=== PATIENT | female | born 1945 | race Caucasian/White ===

== ENCOUNTER 2016-06-22 13:39 | Inpatient (IN) | payer MEDICARE, OTHER ==
[~2016-06-22] VITALS: Ht 167.6 cm; Wt 74.3 kg
--- NOTE | ~2016-06-22 | DS ---
PATIENT'S NAME: SUHAIL HUBBARD [facility] AGE: 70 Y [address] ROOM: [address] [address] LOCATION: [facility] [place] ADMIT DATE: 06/23/2016 Discharge Summary DISCHARGE DATE: 06/29/2016 FAMILY PHYSICIAN: Ac Martinez MD ATTENDING PHYSICIAN: Emerson Mireles FINAL DIAGNOSIS: Right retroperitoneal malignancy with renal involvement with final pathology pending. OTHER DIAGNOSES: 1. Kyk-hyukcwk-cldnernrd diabetes. 2. Coronary artery disease. 3. Deep venous thrombosis. 4. Chronic anemia. SURGICAL PROCEDURE: Right radical nephrectomy on 06/23/2016. REASON FOR HOSPITALIZATION: This is a 70-year-old lady, found to have a massive right retroperitoneal mass. She was anemic and had a palpable mass. CTA indicated that was likely of renal origin. She was admitted at this time for nephrectomy. For complete details of the past history and physical exam, refer to the dictated report. LAB AND X-RAY DATA: Final pathology is pending. It is a poorly differentiated malignancy. It has been sent to the [facility]. She was anemic with a hemoglobin of approximately 8 at the time of admission. With her massive tumor, we started transfusion at the time of surgery. She received for 4 intraoperative units as well as a unit postoperatively. Her hemoglobin was stable at 8.0 at last check prior to discharge. Chemistries were within normal limits and remained within normal limits postop. Accu- Cheks were followed appropriately. She had a postoperative chest x-ray that was unremarkable. HOSPITAL COURSE: The patient was admitted for indications noted above. After preoperative preparation, she underwent the above-noted surgery. She tolerated it well. Her postoperative course has been relatively benign. She was slowly advanced on an ADA diet. The hospitalist followed her from a medical standpoint. She has done fine with her diabetes management. We have gotten her started back on anticoagulants and antiplatelet therapy with her known DVT. At this point, she is tolerating a regular diet. Her wound is progressing nicely. She is felt ready for discharge and follow up as an outpatient. DISPOSITION: The patient discharged to home in stable condition. Resume her usual diet and activity with instructions to no heavy lifting or straining. PATIENT'S NAME: SUHAIL HUBBARD [facility] AGE: 70 Y [address] ROOM: [address] [address] LOCATION: [facility] [place] ADMIT DATE: 06/23/2016 Discharge Summary DISCHARGE DATE: 06/29/2016 FAMILY PHYSICIAN: Ac Martinez MD ATTENDING PHYSICIAN: Emerson Mireles DISCHARGE MEDICATIONS: Unchanged from admission with the addition of iron replacement and [place] on a p.r.n. basis for pain. She will be seen locally at the end of this week for staple removal. Either myself or Dr. Machado will see her at outreach clinic in 2 to 3 weeks. We will have the pathology back then. I have talked to the family about making arrangements at that point for Oncology evaluation for additional therapy. The tumor was invasive and growing into the mesentery. We could not resect all disease. She will call if she has any questions or concerns. Otherwise, followup will be as above. EMERSON MIRELES MD [facility]/modl /[id number] CC: Ac Martinez MD d: 06/29/16 1856 t: 06/30/16 0955, DISCHARGE SUMMARY
--- NOTE | ~2016-06-22 | OR ---
PATIENT'S NAME: SUHAIL HUBBARD [facility] AGE: 70 Y [address] ROOM: [address] [address] [place] [facility] [place]: 06/23/2016 OR/Procedure Report DISCHARGE DATE: FAMILY PHYSICIAN: Ac Martinez MD ATTENDING PHYSICIAN: Emerson Mireles SURGEON: Emerson Mireles MD TAPPING MACHINE OPERATOR: Alo Grande MD. DATE OF PROCEDURE: 06/23/2016 PREOPERATIVE DIAGNOSIS: Massive right renal mass. POSTOPERATIVE DIAGNOSIS: Massive right renal mass with malignancy confirmed on preliminary pathology with final pathology deferred to permanents. PROCEDURE: Complicated right radical nephrectomy secondary to massive size and direct invasion into the mesentery. ANESTHESIA: General plus epidural. INDICATION: This is a 70-year-old lady who was recently found to have an approximately 19 cm right renal mass. It is huge and visually apparent on examination. Dr. Martinez found that. Interestingly, her only symptom was some fatigue and she was found to be anemic with hemoglobin of approximately 8. She presents for radical nephrectomy. There does not be appear to be any vascular invasion. The procedure will be complicated by the massive size of the tumor which distorts her anatomy. We have studied her preoperative CT's extensively, and her right renal artery and vein are pushed up under the edge of the liver. We will have to be cognizant of the left renal vein as it comes across also. 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 She has developed a DVT likely secondary to her malignancy and her compromised venous return. Our first goal to be make sure it is resectable before we proceed. Hopefully, if we can control the hilum and get it out, it will be encapsulated and contained. DESCRIPTION OF PROCEDURE: Having obtained informed consent, the patient was taken to the operating room. She was prepped and draped sterilely and in a slight right flank position. Based on our review of the preoperative CT scans, we will make her usual 11th rib incision. The vessels appeared to be right at the level of 12th rib. In addition, we are prepared to proceed with an extension across the midline or a vertical depending on what we need for exposure. General anesthesia was administered without incident. She has an indwelling epidural from preop. The 12th rib incision was made. We came medially down onto the tumor which distorts her abdominal anatomy. As noted, it is visually apparent. We were careful coming down onto the surface in case there is any bowel. There does not appear to be from the CT scan. We did PATIENT'S NAME: SUHAIL HUBBARD [facility] AGE: 70 Y [address] ROOM: [place] [address] [place] [facility] [place]: 06/23/2016 OR/Procedure Report DISCHARGE DATE: FAMILY PHYSICIAN: Ac Martinez MD ATTENDING PHYSICIAN: Emerson Mireles come down on top of the identifiable kidney. That is the upper pole. The tumor appears to emanate from the lower pole. We spent some careful time initially in dissecting. It became apparent that the colon was stuck across the top of it inferiorly. We are going to need more exposure. Therefore, we divided the ligament of Treitz and extended our incision across in a partial chevron on the patient's left. This improved our exposure. We then worked down and we find that the tumor is densely adherent to the mesentery. As we will see, it actually grows into it. My first goal was to identify the vena cava as it is compressed and diverted by the mass. We mobilized the duodenal carefully. I then identified the vena cava. I was then able to identify the gonadal vein draining into it and a large right renal vein. I initially controlled those with vessel loops. We did not divide anything until we were sure we could get the kidney out. We then spent some time taking down the reflexion from the liver. We do have a nice plane there. Then worked laterally. As we worked our way laterally, the mass mobilized a bit and we were able to bring much of it up into our incision. It was at point, as we tried to mobilize the colon off the top of it, but we realized it was actually invading the mesentery. Specifically, the edge of the bowel was nicely visualized, and in order to stay out of that edge, we had to go out directly through the tumor along the mesentery. We also had to be careful of inferiorly as the tumor distorts and lays on top of the iliac vessels. Ultimately, we got mobilized to the point where I felt that we could get it removed. It is going to be a debulking. Based on the inferior invasion, we will have residual disease. I went ahead and ligated the gonadal vein as well as the renal vein. We were then able to identify the artery underneath it. Interestingly, I found a second artery which we could not appreciate from her preoperative CT scan. We control both of those. We then mobilized the kidney. We then followed the tumor down towards her right lower quadrant. Once we got completely mobilized, we could bring it up with her right colon. Right colon was taken off, but there was obvious tumor left behind as described above. The entire tumor mass is sent to Pathology. Pathology informed us that it is definitely malignant. They are leaning potentially toward sarcoma, but they are deferring to final pathology. We spent some time with antibiotic irrigation. She had a number of oozing sites where we had to peel the tumor off. We controlled those with cautery and stick ties. We then closed a small mesenteric defect to avoid any herniation from small bowel and a subsequent bowel obstruction. The colon was then returned to its normal anatomic position. The wound was then closed in layers. The patient tolerated the procedure well. Blood loss was estimated at 1100 mL. Based on the blood loss and her starting hemoglobin, anesthesia PATIENT'S NAME: SUHAIL HUBBARD [facility] AGE: 70 Y [address] ROOM: [place] [address] [place] [facility] [place]: 06/23/2016 OR/Procedure Report DISCHARGE DATE: FAMILY PHYSICIAN: Ac Martinez MD ATTENDING PHYSICIAN: Emerson Mireles transfused throughout. She received 4 units of packed cells. She also received albumin and FFP. She remained relatively stable from hemodynamic standpoint. She was transferred to the recovery area, already awake, and hemodynamically stable. EMERSON MIRELES MD [facility]/modl /[id number] CC: Ac Martinez MD d: 06/23/16 1733 t: 06/30/16 0953, OPERATIVE SUMMARY
[2016-06-22 14:32] LABS: INR - (THERAPEUTIC) 1.1 (0.9-1.1); PROTIME 11.4 SECONDS (9.6-11.1)
[2016-06-22] MEDS ORDERED: XARELTO15 MG PO (14:38)
[2016-06-22] MEDS ORDERED: PLAVIX75 MG PO (14:38)
[2016-06-22] MEDS ORDERED: PANTOPRAZOLE SO40 MG PO (14:39)
[2016-06-22] MEDS ORDERED: COREG25 MG PO (14:39)
[2016-06-22] MEDS ORDERED: NORVASC10 MG PO (14:39)
[2016-06-22] MEDS ORDERED: GLUCOPHAGE500 MG PO (14:40)
[2016-06-22] MEDS ORDERED: ATORVASTATIN CA80 MG PO (14:40)
[2016-06-22] MEDS ORDERED: VASOTEC10 MG PO (14:40)
[2016-06-22] MEDS ORDERED: CALCIUM CARBON600 MG PO (14:41)
[2016-06-22] MEDS ORDERED: FISH OIL 1,0001 EACH PO (14:43)
[2016-06-22] MEDS ORDERED: EYE VITAMIN-MI1 EACH PO (14:44)
[2016-06-22] MEDS ORDERED: THERA-VITE W/ B1 TAB PO (14:44)
[2016-06-22] MEDS ORDERED: ASCORBIC ACID500 MG PO (14:44)
[2016-06-23 10:39] LABS: HEMATOCRIT 23.7 % (33.0-46.0)
[2016-06-23 11:06] LABS: BICARBONATE 18.1 mmol/L (18.0-23.0); PCO2 35 mmHg (35-45); PO2 140 mmHg (80-90)
[2016-06-23 11:07] LABS: POTASSIUM 4.3 mEq/L (3.7-5.1); SODIUM 142 mEq/L (135-145)
[2016-06-23 15:46] LABS: HEMATOCRIT 25.2 % (33.0-46.0); HEMOGLOBIN 8.5 g/dL (10.0-15.0)
--- NOTE | 2016-06-23 17:21 | NUR ---
Significant Event: PT AO. POST OP VITALS STABLE, LAST HOURLY WILL BE AT 1850. 1/2NS RUNNING AT 100ML/HR. CAN SALINE LOCK WHEN NANCY PO. ON CLEAR LIQUID DIET. ARRIAGA PATENT, 175ML URINE OUT. PT IS BEDREST. INCISION TO R UPPER ABDOMEN, DRESSING D/I. PNEUMATIC TO R LEG ONLY, DVT IN LLE THIS MONTH. EPIDURAL RUNNING FENTANYL/ROPIVOCAINE 5 CONTINUOUS, 2 DEMAND, 15MIN LOCKOUT. NO EXTRA DEMANDS THIS SHIFT. ACHS ACCUCHECKS. FAMILY AT BEDSIDE. Follow up: IS Q 1/2 HR, LABS IN AM, BEDREST
[2016-06-23 19:57] LABS: CREATININE 1.1 mg/dL (0.5-1.1)
--- NOTE | 2016-06-24 04:10 | NUR ---
Significant Event:pt is a/o x3. pt has epidural with fent/ropivicane 5 continuous, 2 mg demand and 15min lockout pt had no demands and rated pain @ 0 all shift. pt rested well. dressing across abdomen around to mid side on right. pt is taking in cl slowly but tolerating it. iv to l fa has 1/2 ns @ 100 and may be sl when taking po well. iv to r wrist is sl. vo is patent. accuchecks ac/hs w/ mild ss, bs was 171 no insulin given. pt has hx of dvt to l leg on jun 09- no pneumatic to l leg. pt on xeralto @ home- do not let drs. restart until after epidural dc'd. pt is on bedrest but will likely be able to get up to the chair today. Follow up:monitor pain-epidural
[2016-06-24 05:50] LABS: BASOPHIL % 0.1 %; HEMOGLOBIN 7.8 g/dL (10.0-15.0); IMMATURE GRANULOCYTE % 0.2 %; LYMPHOCYTE # 1.3 K/uL (0.8-4.0); LYMPHOCYTE % 10.9 %; MCH 29.9 pg (27.0-34.0); MCHC 33.9 gm/dL (32.0-36.5); MCV 88.1 fl (83.0-98.0); MONOCYTE # 0.8 K/uL (0.0-1.0); MONOCYTE % 6.9 %; MPV 9.7 fl (9.4-12.4); NEUTROPHIL % 81.9 %; NRBC % 0 /100WBC (0-0.00); PLATELET COUNT 143 K/uL (150-450); RBC 2.61 M/uL (3.50-5.50); RDW-CV 14.7 % (11.9-14.6); WBC 12.2 K/uL (4.0-11.0)
[2016-06-24 06:10] LABS: ALBUMIN 2.2 gm/dL (3.5-5.0); ANION GAP 14.3 (10.0-19.0); CALCIUM 7.9 mg/dL (8.5-10.5); PHOSPHORUS 3.3 mg/dL (2.5-4.9); POTASSIUM 4.3 mMol/L (3.7-5.1)
--- NOTE | 2016-06-24 17:57 | NUR ---
Is A/O.Has epidural running.IV was put to SL later this afternoon.Has had no c/o pain.Is pale.Hgb today was 7.8.Had Lasix 20mg IV at 0835.Scotty garcia yellow urine.Is passing some flatus.SL in Lt.forearm & Lt.wrist.Amb few steps in room.Has been up in chair.Taking flds well.Edema in Lt.hand/wrist & lower extremities.No N/V.
--- NOTE | 2016-06-25 04:10 | NUR ---
Significant Event: Patient alert and oriented X4. Up with 1PA. On epidural running fent/ropivicaine at 5mcg cont, 2mcg demand and 15 min lockout. Saline locks to both wrists. Talking PO well. Rating pain at 0/10. No demands on epidural. Fajardo patent. ACHS accuchecks. Mild SS. Incision across abdomen with shadow drainage noted. Received blood on Wednesday. Cooperative with cares. Follow up: Monitor pain
[2016-06-25 05:47] LABS: BASOPHIL % 0.3 %; EOSINOPHIL % 0.3 %; HEMATOCRIT 21.2 % (33.0-46.0); IMMATURE GRANULOCYTE # 0.1 K/uL (0.0-0.3); IMMATURE GRANULOCYTE % 0.5 %; LYMPHOCYTE # 1.5 K/uL (0.8-4.0); LYMPHOCYTE % 13.9 %; MCH 30.3 pg (27.0-34.0); MCV 89.1 fl (83.0-98.0); MONOCYTE # 0.8 K/uL (0.0-1.0); MONOCYTE % 7.5 %; MPV 9.8 fl (9.4-12.4); NEUTROPHIL # (ANC) 8.3 K/uL (1.8-7.8); NEUTROPHIL % 77.5 %; NRBC % 0 /100WBC (0-0.00); PLATELET COUNT 121 K/uL (150-450); RBC 2.38 M/uL (3.50-5.50); RDW-CV 14.6 % (11.9-14.6); WBC 10.7 K/uL (4.0-11.0)
[2016-06-25 05:51] LABS: HEMOGLOBIN 7.2 g/dL (10.0-15.0)
[2016-06-25 05:59] LABS: ALBUMIN 2.1 gm/dL (3.5-5.0); ANION GAP 13.3 (10.0-19.0); CALCIUM 7.9 mg/dL (8.5-10.5); CREATININE 1.1 mg/dL (0.5-1.1); POTASSIUM 4.3 mMol/L (3.7-5.1)
--- NOTE | 2016-06-25 11:31 | NUR ---
I have examined the student charting and find it acceptable. DELL Guzman
--- NOTE | 2016-06-25 18:28 | NUR ---
AAOx3. Tolerating ADA diet. Up w/ assist, GB, walker. Epidural (Fent/Ropiv) 2.5/05/17LO; no demands. Transverse dressing to abdomen wrapping around R)flank d/i. Fajardo draining yellow urine 825ml UOP. Bilat PIV s/l'd. SOB and tired when ambulating. To receive one unit PRBCs when ready tonight. VSS, afebrile, denies N/V/D. Pain controlled by epidural.
--- NOTE | 2016-06-26 04:43 | NUR ---
Significant Event: Pt alert and Orineted x3. Cooperative with cares. ambulated in colin and up to bathroom with 1-2 assist. walker and gaitbelt. 1 unit of blood given last night will check H/H this morning. pneumatics on right leg only. epidural intact with small amount of drainage. 2.5, no demands. 2 Moderate casillas BM this shift, passing gas. encourage IS. Mild temp at 99.7. other then that VSS. ACHS accuchecks. Incision across abdomen with shadow drainage. pt is rating pain 0/10 through out the shift. vo intact draining clear yellow urine. Follow up:
[2016-06-26 05:28] LABS: BASOPHIL % 0.2 %; EOSINOPHIL # 0.1 K/uL (0.0-0.5); EOSINOPHIL % 0.7 %; HEMATOCRIT 23.7 % (33.0-46.0); IMMATURE GRANULOCYTE # 0.1 K/uL (0.0-0.3); IMMATURE GRANULOCYTE % 0.6 %; LYMPHOCYTE # 1.4 K/uL (0.8-4.0); LYMPHOCYTE % 13.4 %; MCH 29.9 pg (27.0-34.0); MCHC 33.8 gm/dL (32.0-36.5); MCV 88.4 fl (83.0-98.0); MONOCYTE # 0.6 K/uL (0.0-1.0); MONOCYTE % 6.2 %; MPV 10.1 fl (9.4-12.4); NEUTROPHIL % 78.9 %; NRBC % 0 /100WBC (0-0.00); PLATELET COUNT 127 K/uL (150-450); RBC 2.68 M/uL (3.50-5.50); RDW-CV 14.3 % (11.9-14.6); WBC 10.1 K/uL (4.0-11.0)
--- NOTE | 2016-06-26 16:00 | NUR ---
SPOKE TO PATIENT AND HER SPOUSE AT THE BEDSIDE. INTRODUCED CM AND OUR ROLE. PATIENT LIVES IN OWN HOME WITH SPOUSE. PATIENT IS UNSURE AT THIS TIME OF WHAT HER DISCHARGE NEEDS WILL BE. SHE WOULD LIKE FOR ME TO TOUCH BASE WITH HER ONCE SHE IS CLOSER TO DISCHARGE. PRESENTED OPTION OF SB AT [place] OR [facility] AND SHE TELLS ME SHE ANTICIPATES THAT SHE MAY NEED ONCE OF THESE SERVICES BUT WANTS TO SEE HOW SHE IS FEELING ON WEDNESDAY AND HOW THE WEEKEND GOES. WILL CONT TO FOLLOW NEEDED.
--- NOTE | 2016-06-26 17:01 | NUR ---
AAOx3. Cooperative with cares. Up w/1 assist and GB w/steady slow gait in hallways; still SOB on exertion. Difficulty w/IS, continue to encourage. VSS, on RA. 99.1 max temp. Tolerating ADA diet well. BS AC/HS w/mild SSI; coverage at lunchtime. Epidural [employer] (Fent/Ropiv) 2.5/1/15min LO; no demands used. Dr Fajardo would like anesthesiology to d/c when rounding. Fajardo in place until after epidural pulled. Dressing off today. Transverse abdominal incision well approximated.
--- NOTE | 2016-06-27 02:50 | NUR ---
Significant Event: Pt alert and Oriented x3. Cooperative with cares. up in [address] way with one assist walker and gaitblelt. Epidural pulled at 2054. stoped infusion aound 1899. Fajardo pulled at 199. No post void at this time. RA. VSS.tolerating ADA diet well. No BM this shift. encourage IS. No temp this shift. transverse abdominal incision intact. ACHS accuchecks. pt denies pain so far. gave norco x2 for anticipated pain. Follow up:encourage ambulation
[2016-06-27 06:07] LABS: ANION GAP 12.2 (10.0-19.0); CALCIUM 7.9 mg/dL (8.5-10.5); PHOSPHORUS 2.8 mg/dL (2.5-4.9); POTASSIUM 4.2 mMol/L (3.7-5.1)
[2016-06-27 06:10] LABS: ALBUMIN 1.8 gm/dL (3.5-5.0)
--- NOTE | 2016-06-27 17:20 | NUR ---
Significant Event: Patient alert and oriented. Up to the recliner for all meals. [place] 10/325, 1 tab given at 0825 for c/o R) flank discomfort. At 1140 patient c/o nausea when ambulating. Zofran 4 mg IV given at 1212 with relief. Patient has refused any need for pain meds this afternoon. Up to the bathroom with assist and patient voiding without difficulty. Patient states passing flatus but no BM this shift. Accuchecks have been 138, 219 and 136 with 2 units of Novolog insulin given with lunch. Patient ambulated in the hallway x 2. Follow up: Ambulate this evening.
--- NOTE | 2016-06-28 03:42 | NUR ---
SIGNIFICANT EVENT: Alert & oriented. VSS on RA. 1PA walker, GB. Ambulate in colin x1 this evening, tolerated well - needs to ambulate 3xdaily. Denies nausea - Tylenol x1 for pain at approx 2114. Incision to R) upper abd - C/D/I. Void x3 - missed hat once plus 700 measured. No BM this shift. Cooperative with cares.
[2016-06-28 06:06] LABS: BASOPHIL % 0.5 %; EOSINOPHIL # 0.2 K/uL (0.0-0.5); EOSINOPHIL % 2.2 %; HEMATOCRIT 22.8 % (33.0-46.0); HEMOGLOBIN 7.7 g/dL (10.0-15.0); IMMATURE GRANULOCYTE % 0.2 %; LYMPHOCYTE # 1.7 K/uL (0.8-4.0); LYMPHOCYTE % 20.9 %; MCH 30.1 pg (27.0-34.0); MCHC 33.8 gm/dL (32.0-36.5); MCV 89.1 fl (83.0-98.0); MONOCYTE # 0.6 K/uL (0.0-1.0); MONOCYTE % 7.7 %; MPV 10.2 fl (9.4-12.4); NEUTROPHIL # (ANC) 5.6 K/uL (1.8-7.8); NEUTROPHIL % 68.5 %; NRBC % 0 /100WBC (0-0.00); PLATELET COUNT 164 K/uL (150-450); RBC 2.56 M/uL (3.50-5.50); WBC 8.2 K/uL (4.0-11.0)
--- NOTE | 2016-06-28 13:36 | NUR ---
Significant Event: Patient alert and oriented. Up to the bathroom with assist to void and patient had a moderate, loose BM this afternoon. Ambulated in the hallway x 2 and up in the recliner most of the morning. Patient states having minimal incisional discomfort and has refused need for any pain meds. Accuchecks have been 1127 and 257 with 4 units of Novolog insulin given with lunch. Hgb down to 7.7 this morning. Follow up: Ambulate this evening. Encourage oral fluids. Possible dismissal tomorrow.
--- NOTE | 2016-06-28 15:23 | NUR ---
A-SCREENED D/T LOS S/P R)NEPHRECTOMY D/T MASS. (+)FLATUS, (+)BM. HT: 66 IN. WT: 74.3 KG BMI: 24.3. 126% IBW LABS: NA 139, K+ 4.2, LGU 137, BUN 23, SHAKE SAWYER 1.0, ALB 1.8, HGB A1C 5.2 MEDS: XARELTO, ZOFRAN, NOVOLOG (MILD SS), LIPTIOR, GLUCOPHAGE, RESTORIL, NUCYNTA, NORCO DIET RX: CONSISTENT CARB. PO INTAKE 50-100% EST NUTR NEEDS: 6036-9683 KCALS (25-30 KCALS/KG) 74-89 GM PROTEIN (1.0-1.2 GM/KG) 1 ML FLUID/KCAL D-AT NUTRITION RISK W/INCREASED NUTRIENT NEEDS R/T HEALING AEB RECENT SURGERY. I-ADD GLUCERNA QD AT [facility] M/E-GOAL: PO INTAKE >/=75% BY DISCHARGE 1)F/U PO INTAKE, SUPPLEMENT, AND POC IN 3-5 DAYS 2)ASSIST NEEDED
[2016-06-29 06:17] LABS: HEMATOCRIT 24.2 % (33.0-46.0)
--- NOTE | 2016-06-29 07:32 | NUR ---
SIGNIFICANT EVENT: Patient alert & oriented. Up to bathroom/ambulate in colin 1PA walker, gaitbelt. Tylenol x1 at approx 2330. VSS on RA. Restless through the night, but states relief of pain with the Tylenol given. ACHS accucheck - no mild SS coverage for HS BG of 139. IV's in bilateral FA's both SL. Possible DC to home today. Cooperative with cares.
[2016-06-29] MEDS ORDERED: FEOSOL325 MG PO (08:17)
[2016-06-29] MEDS ORDERED: NORCO 5-325 TA1 EACH PO (08:18)
--- NOTE | 2016-06-29 10:30 | NUR ---
SPOKE TO PATIENT AND HER SPOUSE AT THE BEDSIDE.PATIENT IS PLANNING ON BEING DISHCARGE HOME TODAY. PRESENTED TO HER THE OPTION OF HHC AND PATIENT DECLINDED IT AT THIS TIME. WILL CONT TO FOLLOW NEEDED.
--- NOTE | 2016-06-29 10:30 | NUR ---
SPOKE TO PATIENT AND HER SPOUSE AT THE BEDSIDE. PATIENT IS PLANNING ON GOING HOME LATER TODAY. PRESENTED TO HER THE OPTION OF HHC AND PATIENT DECLINED IT AT THIS TIME. PATIENT REPORTS THAT SHE HAS A FRONT WHEELED WALKER, AND A SHOWER CHAIR. JAN DOES NOT ANTICIPATE ANY DISCHARGE NEEDS AT THIS TIME. WILL CONT TO FOLLOW NEEDED.
[2016-06-29] MEDS ORDERED: ALIGN4 MG PO (12:05)
--- NOTE | 2016-06-29 13:30 | NUR ---
DISCHARGE: Pt. was given discharge instructions, educated on nephrectomy aftercare and new medications: feosol and norco. Verbalized understanding and repeated back instructions. No questions or concerns. Will follow up as ordered. Scheduled with Tana for 07/08 bc he is only at clinic once monthly and will not be in [place] in month of August. Left with all belongings and prescriptions. Taken to front door by aide and driven home by . Left at 1325.
--- NOTE | 2016-07-08 14:55 | NUR ---
Post hospitalization follow up call made to patient. She reports that she is doing well. Had folow up appointment with Dr. Fajardo today. No questions concerning her medications or follow up appointments. Reports her hospital stay went well.
== END 2016-06-29 13:20 | disposition disaster alternative care site (69) | DRG 657 ==
LOC: GPOC 13:39 → GMSU 06-23 05:22 → EDSTATUS 06-23 14:00 → GMSU 06-29 13:20
PROVIDERS: Family Medicine; Internal Medicine; Nurse Anesthetist, Certified Registered; Physician Assistant; ADMIT Urology
PROC: 3E0R3CZ (ICD-10-PCS; principal; 2016-06-23)
PROC: 0TT00ZZ Resection of Right Kidney, Open Approach (ICD-10-PCS; principal; 2016-06-23)
PROC: 00HU33Z Insertion of Infusion Device into Spinal Canal, Percutaneous Approach (ICD-10-PCS; principal; 2016-06-23)
PROC: 30233N1 Transfusion of Nonautologous Red Blood Cells into Peripheral Vein, Percutaneous Approach (ICD-10-PCS; 2016-06-25)
DX: C64.1 Malignant neoplasm of right kidney, except renal pelvis (principal); I82.4Z2 Acute embolism and thrombosis of unspecified deep veins of left distal lower extremity; E11.9 Type 2 diabetes mellitus without complications; I10 Essential (primary) hypertension; E78.5 Hyperlipidemia, unspecified; D63.8 Anemia in other chronic diseases classified elsewhere; Z86.718 Personal history of other venous thrombosis and embolism; I25.10 Atherosclerotic heart disease of native coronary artery without angina pectoris; K21.9 Gastro-esophageal reflux disease without esophagitis; Z95.5 Presence of coronary angioplasty implant and graft; Z79.02 Long term (current) use of antithrombotics/antiplatelets
CPT/HCPCS: J0690; J1940; J2001; J2405; J3010; J7030; J7050; J7120; P9016; P9017